=== PATIENT | female | born 1990 | race Caucasian/White ===

== ENCOUNTER 2017-05-30 08:52 | Day surgery (SDC) | payer OTHER ==
[2017-05-30 09:20] VITALS: TEMP 98.5
[2017-05-30] MEDS ORDERED: LACTATED RINGERS 1,000 ML IV SCH (09:22)
[2017-05-30] MEDS ORDERED: LIDOCAINE 1% 20 ML VIAL (10MG/ML) FOR IV START INTRADERMA ONE (09:27)
[2017-05-30] MEDS ORDERED: PROPOFOL 10 MG/ML 20 ML VIAL IV ONE (09:51)
[2017-05-30] MEDS ORDERED: LIDOCAINE 1% INJ 10MG/ML (20 ML MDV) ONE (09:51)
[2017-05-30] MEDS ORDERED: MIDAZOLAM 2 MG/2 ML VIAL ONE (09:51)
--- NOTE | 2017-05-30 09:55 | P.GSHP ---
History of Present Illness H&P Date: 05/30/17 Chief Complaint: GERD This a 26-year-old female who is a new patient to Dr. Rosales. Patient presents today for EGD. She was originally treated for reflux by Dr. Myers. She's been treated with excellent. She did have some relief with this medication. Past Medical History Past Medical History: GERD/Reflux Additional Past Medical History / Comment(s): frequent heartburn, vomiting History of Any Multi-Drug Resistant Organisms: None Reported Additional Past Surgical History / Comment(s): wisdom teeth Past Anesthesia/Blood Transfusion Reactions: No Reported Reaction Smoking Status: Former smoker - Past Family History Mother Family Medical History: Cancer Medications and Allergies Home Medications Medication Instructions Recorded Confirmed Type No Known Home Medications [No 05/28/17 05/28/17 History Known Home Medications] Allergies Allergy/AdvReac Type Severity Reaction Status Date / Time nickel Allergy Rash/Hives Uncoded 05/28/17 12:58 Surgical - Exam Vital Signs Temp Pulse Resp BP Pulse Ox 98.5 F 104 H 16 128/84 98 05/30/17 09:18 05/30/17 09:18 05/30/17 09:18 05/30/17 09:18 05/30/17 09:18 - General well developed, no distress - Eyes PERRL - ENT normal pinna - Neck no masses - Respiratory normal expansion - Cardiovascular Rhythm: regular - Abdomen Abdomen: soft, non tender Assessment and Plan Plan: GERD. We'll perform EGD.
[2017-05-30 10:12] VITALS: RESP 18
[2017-05-30 10:41] VITALS: BP 113/76; PULSE 89
--- NOTE | 2017-05-30 13:18 | P.OP ---
Date of Procedure: 05/30/17 Preoperative Diagnosis: gerd Postoperative Diagnosis: GERD Hiatal hernia Antral gastritis Esophagitis Procedure(s) Performed: EGD Implants: Anesthesia: MAC Surgeon: Mike Ewing Pathology: other (Antrum, esophagus) Indications for Procedure: Operative Findings: Description of Procedure: The patient's placed on the endoscopy table lateral position. She received IV sedation. The gastroscope placed oropharynx passed in the esophagus and stomach. Scope was then placed through the pylorus. The first second portion duodenum appeared normal. Scope was then brought back and the antrum and this appeared mildly inflamed. Biopsies performed. The scope was unretroflexed and remainder stomach appeared normal. There was a moderate size hiatal hernia. The GE junction was at 38 cm. The distal esophagus appeared mildly inflamed a biopsies performed. The proximal esophagus appeared normal. Scope was withdrawn from patient.
== END 2017-05-30 10:45 | disposition home or self-care (01) ==
LOC: ORWHC2ENDO 08:52
PROVIDERS: ATTEND Surgery
DX: K21.0 Gastro-esophageal reflux disease with esophagitis (principal); K29.50 Unspecified chronic gastritis without bleeding; K44.9 Diaphragmatic hernia without obstruction or gangrene; Z87.891 Personal history of nicotine dependence
CPT/HCPCS: 81025; 88305; 88342; 43239; J2250; J2001; J2704

== ENCOUNTER 2017-06-22 22:54 | Emergency (ER) | payer OTHER ==
[2017-06-22 23:02] VITALS: TEMP 98.6
[2017-06-22] MEDS ORDERED: IPRATROPIUM-ALBUTEROL 3 ML NEB INHALATION STA (23:09)
[2017-06-22] MEDS ORDERED: methylPREDNISolone SOD SUCCI 125 MG/2 ML VIAL IM ONE (23:10)
--- NOTE | 2017-06-22 23:22 | ED ---
SOB HPI - General Chief Complaint: Shortness of Breath Stated Complaint: Difficulty Breathing Time Seen by Provider: 06/22/17 23:04 Source: patient, RN notes reviewed Mode of arrival: ambulatory Limitations: no limitations - History of Present Illness Initial Comments: This a 26-year-old female presents emergency Department chief complaint shortness breath. Patient states she's had increasing shortness breath over the last few days. Patient states she was discharged from the hospital on after she spent the night in the hospital secondary tachycardia. Patient states she started on Tenormin 25 mg by medical specialist. They cannot find any abnormality causing her tachycardia. She states that she had an echocardiogram , EKG and repeat troponin. Patient states her thyroid function was normal. Patient states that she also has been told that she has a hiatal hernia by Dr. Irizarryania she's had bladder surgery this week. Patient denies any nausea vomiting. She does complain of some acid reflux but this is chronic. Patient states that last few hours she's had increasing shortness breath and tightness in her chest. She states that she hears herself wheezing at home. Patient is a nonsmoker no history of asthma. - Related Data Home Medications Medication Instructions Recorded Confirmed Omeprazole 40 mg PO DAILY 06/17/17 06/22/17 Previous Rx's Medication Instructions Recorded Metoprolol Tartrate [Lopressor] 12.5 mg PO BID #60 tab 06/19/17 Albuterol Sulfate [Proair Hfa] 1 - 2 puff INHALATION Q4HR PRN #1 06/23/17 inhaler methylPREDNISolone [Medrol Dose 4 mg PO DIRECTED #1 pack 06/23/17 Pack] Allergies Allergy/AdvReac Type Severity Reaction Status Date / Time nickel Allergy Rash/Hives Uncoded 06/18/17 07:44 Review of Systems ROS Statement: Those systems with pertinent positive or pertinent negative responses have been documented in the HPI. ROS Other: All systems not noted in ROS Statement are negative. Past Medical History Past Medical History: GERD/Reflux, Skin Disorder Additional Past Medical History / Comment(s): GERD,HIATAL HERNIA, GASTRITIS, ESOPHAGITIS, psoriasis,RECENT lung infection was on ABB/steroids, JIHAN FEVER. NEVER HAD CHICKEN POX. History of Any Multi-Drug Resistant Organisms: None Reported Additional Past Surgical History / Comment(s): [place] teeth, EGD. Past Anesthesia/Blood Transfusion Reactions: No Reported Reaction Past Psychological History: ADD/ADHD, Anxiety, Depression Smoking Status: Former smoker - Past Family History Mother Family Medical History: Cancer Additional Family Medical History / Comment(s): Breast Cancer Father Additional Family Medical History / Comment(s): CATARACTS, HERNIA General Exam Limitations: no limitations General appearance: alert, in no apparent distress Head exam: Present: atraumatic, normocephalic, normal inspection Eye exam: Present: normal appearance, PERRL, EOMI. Absent: scleral icterus, conjunctival injection, periorbital swelling ENT exam: Present: normal exam, normal oropharynx, mucous membranes moist, TM's normal bilaterally Neck exam: Present: normal inspection. Absent: tenderness, meningismus, lymphadenopathy Respiratory exam: Present: wheezes (Bilateral throughout), accessory muscle use , decreased breath sounds. Absent: normal lung sounds bilaterally, respiratory distress, rales, rhonchi, stridor Cardiovascular Exam: Present: normal rhythm, tachycardia, normal heart sounds. Absent: systolic murmur, diastolic murmur, rubs, gallop, clicks GI/Abdominal exam: Present: soft, normal bowel sounds. Absent: distended, tenderness, guarding, rebound, rigid Neurological exam: Present: alert, oriented X3, CN II-XII intact Skin exam: Present: warm, dry, intact, normal color. Absent: rash Course Vital Signs 06/22/17 06/22/17 06/22/17 22:58 23:16 23:35 Temperature 98.6 F Pulse Rate 125 H 120 H Respiratory 26 H 26 H Rate Blood Pressure 126/74 O2 Sat by Pulse 92 L Oximetry 06/22/17 06/23/17 06/23/17 23:38 00:38 00:49 Temperature Pulse Rate 124 H 110 H 108 H Respiratory 20 Rate Blood Pressure 132/62 O2 Sat by Pulse 93 L Oximetry 06/23/17 01:06 Temperature Pulse Rate 112 H Respiratory Rate Blood Pressure O2 Sat by Pulse Oximetry Medical Decision Making - Medical Decision Making 26-year-old female presented for shortness breath wheezing. Patient states she feels 100% better at this time. She still does have some wheezing on exam states that she symptomatically feels better. Patient is requesting to be discharged. I did offer admission to the hospital at this time for steroids and repeat treatments. She states that she feels okay to go home and will follow-up. She is advised to stop the beta torito as this may be causing her symptoms. - Lab Data Result diagrams: 06/22/17 23:20 06/22/17 23:20 Lab Results 06/22/17 06/22/17 06/22/17 Range/Units 23:20 23:20 23:20 WBC 16.6 H (3.8-10.6) k/uL RBC 4.65 (3.80-5.40) m/uL Hgb 14.0 (11.4-16.0) gm/dL Hct 39.8 (34.0-46.0) % MCV 85.4 (80.0-100.0) fL MCH 30.0 (25.0-35.0) pg MCHC 35.2 (31.0-37.0) g/dL RDW 13.9 (11.5-15.5) % Plt Count 359 (150-450) k/uL Neutrophils % 68 % Lymphocytes % 19 % Monocytes % 4 % Eosinophils % 7 % Basophils % 1 % Neutrophils # 11.3 H (1.3-7.7) k/uL Lymphocytes # 3.2 (1.0-4.8) k/uL Monocytes # 0.6 (0-1.0) k/uL Eosinophils # 1.2 H (0-0.7) k/uL Basophils # 0.1 (0-0.2) k/uL Sodium 137 (137-145) mmol/L Potassium 4.1 (3.5-5.1) mmol/L Chloride 106 (98-107) mmol/L Carbon Dioxide 21 L (22-30) mmol/L Anion Gap 10 mmol/L BUN 15 (7-17) mg/dL Creatinine 0.90 (0.52-1.04) mg/dL Est GFR (MDRD) Af Amer >60 (>60 ml/min/1.73 sqM) Est GFR (MDRD) Non-Af >60 (>60 ml/min/1.73 sqM) Glucose 98 (74-99) mg/dL Plasma Lactic Acid Juan C 1.3 (0.7-2.0) mmol/L Calcium 9.6 (8.4-10.2) mg/dL Disposition Clinical Impression: Acute bronchospasm Disposition: HOME SELF-CARE Condition: Stable Instructions: Bronchospasm (ED) Additional Instructions: Please return to the Emergency Department if symptoms worsen or any other concerns. Stop your atenolol and call your physician who prescribed this for further directions. Prescriptions: Albuterol Sulfate [Proair Hfa] 1 - 2 puff INHALATION Q4HR PRN #1 inhaler PRN Reason: difficulty in breathing methylPREDNISolone [Medrol Dose Pack] 4 mg PO DIRECTED #1 pack Referrals: Lopez Rosales DO [Primary Care Provider] - 1-2 days Time of Disposition: 01:21
[2017-06-22] MEDS ORDERED: methylPREDNISolone SOD SUCCI 125 MG/2 ML VIAL IV STA (23:32)
[2017-06-22 23:51] LABS: Basophils # (A) 0.1 k/uL (0-0.2); Basophils % (A) 1 %; CH 30.9; CHCM 36.3; Eosinophils # (A) 1.2 k/uL (0-0.7); Eosinophils % (A) 7 %; HCT 39.8 % (34.0-46.0); Luc # (Auto) 0.19; Luc % (Auto) 1; Lymphocytes # (A) 3.2 k/uL (1.0-4.8); Lymphocytes % (A) 19 %; MCHC 35.2 g/dL (31.0-37.0); MCV 85.4 fL (80.0-100.0); Monocytes # (A) 0.6 k/uL (0-1.0); Monocytes % (A) 4 %; Neutrophils # (A) 11.3 k/uL (1.3-7.7); Neutrophils % (A) 68 %; RBC 4.65 m/uL (3.80-5.40); RDW 13.9 % (11.5-15.5); WBC 16.6 k/uL (3.8-10.6); WBC (Perox) 16.69
[2017-06-22 23:59] LABS: Anion Gap 10 mmol/L; Blood Urea Nitrogen 15 mg/dL (7-17); Calcium 9.6 mg/dL (8.4-10.2); Carbon Dioxide 21 mmol/L (22-30); Chloride 106 mmol/L (98-107); Glucose 98 mg/dL (74-99); Non-African American GFR(MDRD) >60 (>60 ml/min/1.73 sqM); Potassium 4.1 mmol/L (3.5-5.1); Sodium 137 mmol/L (137-145)
--- NOTE | 2017-06-23 00:33 | XR ---
EXAM: XR Chest, 2 Views CLINICAL HISTORY: Reason: Pain TECHNIQUE: Frontal and lateral views of the chest. COMPARISON: No relevant prior studies available. FINDINGS: Lungs: Unremarkable. No consolidation. Pleural space: Unremarkable. No pneumothorax. Heart: Unremarkable. No cardiomegaly. Mediastinum: Unremarkable. Bones/joints: Unremarkable. IMPRESSION: Normal chest x-rays.
[2017-06-23 00:39] VITALS: BP 132/62; RESP 20
[2017-06-23] MEDS ORDERED: ALBUTEROL NEBULIZED 2.5 MG/3 ML INHALATION STA (00:45)
[2017-06-23 01:07] VITALS: PULSE 112
== END 2017-06-23 01:31 | disposition home or self-care (01) ==
LOC: EC 22:54
DX: J98.01 Acute bronchospasm (principal); K21.9 Gastro-esophageal reflux disease without esophagitis; Z53.8 Procedure and treatment not carried out for other reasons; Z87.891 Personal history of nicotine dependence; Z91.048 Other nonmedicinal substance allergy status; Z79.899 Other long term (current) drug therapy
CPT/HCPCS: 99285; 96374; 36415; 94640 ×2; 80048; 83605; 85025; 87040; 71020; J2930

== ENCOUNTER 2018-01-07 12:16 | Emergency (ER) | payer OTHER ==
[2018-01-07] MEDS ORDERED: IPRATROPIUM-ALBUTEROL 3 ML NEB INHALATION STA (13:54)
[2018-01-07 14:07] LABS: Basophils % (A) 0 %; Eosinophils % (A) 0 %; HCT 40.9 % (34.0-46.0); HGB 13.8 gm/dL (11.4-16.0); Lymphocytes # (A) 0.6 k/uL (1.0-4.8); Lymphocytes % (A) 6 %; MCH 28.6 pg (25.0-35.0); MCHC 33.7 g/dL (31.0-37.0); Mean Platelet Volume 7.2; Monocytes # (A) 0.3 k/uL (0-1.0); Monocytes % (A) 3 %; Neutrophils # (A) 8.5 k/uL (1.3-7.7); Neutrophils % (A) 90 %; Platelet Count 311 k/uL (150-450); RBC 4.81 m/uL (3.80-5.40); RDW 13.2 % (11.5-15.5); WBC 9.4 k/uL (3.8-10.6)
--- NOTE | 2018-01-07 14:07 | XR ---
EXAMINATION TYPE: XR chest 2V DATE OF EXAM: 01/07/2018 COMPARISON: 06/22/2017 HISTORY: Chest pain TECHNIQUE: Frontal and lateral views of the chest are obtained. FINDINGS: There is no focal air space opacity. No evidence for pneumothorax. No pleural effusion. The cardiac silhouette size is within normal limits. The osseous structures are grossly intact. IMPRESSION: 1. No acute cardiopulmonary process.
[2018-01-07 14:09] LABS: ALT 23 U/L (9-52); AST 15 U/L (14-36); Albumin 4.7 g/dL (3.5-5.0); Alkaline Phosphatase 102 U/L (38-126); Anion Gap 16 mmol/L; Blood Urea Nitrogen 13 mg/dL (7-17); Calcium 10.1 mg/dL (8.4-10.2); Carbon Dioxide 21 mmol/L (22-30); Chloride 105 mmol/L (98-107); Glucose 105 mg/dL (74-99); Potassium 4.4 mmol/L (3.5-5.1); Sodium 142 mmol/L (137-145); Total Bilirubin 0.6 mg/dL (0.2-1.3); Total Protein 7.8 g/dL (6.3-8.2)
[2018-01-07 14:13] LABS: INR 1.3 (<1.2); Prothrombin Time 12.2 sec (9.0-12.0)
[2018-01-07 14:14] LABS: Partial Thromboplastin Time 22.3 sec (22.0-30.0)
--- NOTE | 2018-01-07 15:32 | ED ---
SOB HPI - General Chief Complaint: Shortness of Breath Stated Complaint: Shortness of Breath Time Seen by Provider: 01/07/18 13:40 Source: patient Mode of arrival: ambulatory Limitations: no limitations - History of Present Illness Initial Comments: Patient complains of shortness of breath. She has wheezing. Patient saw her doctor yesterday. They started her on Solu-Medrol, azithromycin and albuterol. Patient states that about 6 months ago she had an aspiration pneumonia. Ever since then she has been having episodes of trouble breathing. She states that she has shortness of breath when she is walking around. She also has trouble on down at nighttime. She has no belly or back pain. She has no chest pain or pressure or tightness. - Related Data Home Medications Medication Instructions Recorded Confirmed Albuterol Sulfate [Proair Hfa] 2 puff INHALATION RT-Q4H PRN 09/18/17 01/07/18 Diltiazem HCl [Diltiazem ER] 180 mg PO DAILY@1000 09/18/17 01/07/18 Azithromycin [Zithromax Z-pack] See Taper PO DIRECTED 01/07/18 01/07/18 methylPREDNISolone [Medrol Dose See Taper PO DIRECTED 01/07/18 01/07/18 Pack] Allergies Allergy/AdvReac Type Severity Reaction Status Date / Time nickel Allergy Rash/Hives Verified 01/07/18 13:43 Review of Systems ROS Statement: Those systems with pertinent positive or pertinent negative responses have been documented in the HPI. ROS Other: All systems not noted in ROS Statement are negative. Past Medical History Past Medical History: GERD/Reflux, Skin Disorder Additional Past Medical History / Comment(s): hx migraines, occ palpitations, "tachycardia", hiatal hernia, poriasis,hypoglycemia, anemia, History of Any Multi-Drug Resistant Organisms: None Reported Additional Past Surgical History / Comment(s): oral surgery, EGD Past Anesthesia/Blood Transfusion Reactions: No Reported Reaction Past Psychological History: ADD/ADHD, Anxiety Smoking Status: Former smoker Past Alcohol Use History: Occasional Past Drug Use History: None Reported - Past Family History Mother Family Medical History: Cancer Additional Family Medical History / Comment(s): Breast Cancer, skin cancer Father Additional Family Medical History / Comment(s): CATARACTS, HERNIA General Exam Limitations: no limitations General appearance: alert, in no apparent distress Head exam: Present: atraumatic, normocephalic, normal inspection Eye exam: Present: normal appearance, PERRL, EOMI. Absent: scleral icterus, conjunctival injection, periorbital swelling ENT exam: Present: normal exam, mucous membranes moist Neck exam: Present: normal inspection. Absent: tenderness, meningismus, lymphadenopathy Respiratory exam: Present: normal lung sounds bilaterally, wheezes. Absent: respiratory distress, rales, rhonchi, stridor Cardiovascular Exam: Present: regular rate, normal rhythm, normal heart sounds. Absent: systolic murmur, diastolic murmur, rubs, gallop, clicks GI/Abdominal exam: Present: soft, normal bowel sounds. Absent: distended, tenderness, guarding, rebound, rigid Extremities exam: Present: normal inspection, full ROM, normal capillary refill. Absent: tenderness, pedal edema, joint swelling, calf tenderness Back exam: Present: normal inspection Neurological exam: Present: alert, oriented X3, CN II-XII intact Psychiatric exam: Present: normal affect, normal mood Skin exam: Present: warm, dry, intact, normal color. Absent: rash Course Vital Signs 01/07/18 01/07/18 01/07/18 13:11 14:04 14:12 Temperature 99.1 F Pulse Rate 111 H 72 Respiratory 20 18 Rate Blood Pressure 155/79 O2 Sat by Pulse 91 L Oximetry 01/07/18 14:22 Temperature Pulse Rate 74 Respiratory Rate Blood Pressure O2 Sat by Pulse Oximetry Medical Decision Making - Medical Decision Making Patient presents with shortness of breath. She has wheezing. I gave her a DuoNeb breathing. She is feeling better. Laboratory workup is entirely normal. She has negative troponin, negative BNP, negative d-dimer. Two-view chest x-rays negative per radiology. We have illuminated any type of acute emergency condition that requires admission or further workup or admission to the hospital. At this time she is appropriate for outpatient follow-up. She is feeling much better and is stable for discharge. - Lab Data Result diagrams: 01/07/18 13:45 01/07/18 13:45 Lab Results 01/07/18 01/07/18 01/07/18 Range/Units 13:45 13:45 13:45 WBC 9.4 (3.8-10.6) k/uL RBC 4.81 (3.80-5.40) m/uL Hgb 13.8 (11.4-16.0) gm/dL Hct 40.9 (34.0-46.0) % MCV 85.0 (80.0-100.0) fL MCH 28.6 (25.0-35.0) pg MCHC 33.7 (31.0-37.0) g/dL RDW 13.2 (11.5-15.5) % Plt Count 311 (150-450) k/uL Neutrophils % 90 % Lymphocytes % 6 % Monocytes % 3 % Eosinophils % 0 % Basophils % 0 % Neutrophils # 8.5 H (1.3-7.7) k/uL Lymphocytes # 0.6 L (1.0-4.8) k/uL Monocytes # 0.3 (0-1.0) k/uL Eosinophils # 0.0 (0-0.7) k/uL Basophils # 0.0 (0-0.2) k/uL PT 12.2 H (9.0-12.0) sec INR 1.3 H (<1.2) APTT 22.3 (22.0-30.0) sec D-Dimer (<0.60) mg/L FEU Sodium 142 (137-145) mmol/L Potassium 4.4 (3.5-5.1) mmol/L Chloride 105 (98-107) mmol/L Carbon Dioxide 21 L (22-30) mmol/L Anion Gap 16 mmol/L BUN 13 (7-17) mg/dL Creatinine 0.62 (0.52-1.04) mg/dL Est GFR (CKD-EPI)AfAm >90 (>60 ml/min/1.73 sqM) Est GFR (CKD-EPI)NonAf >90 (>60 ml/min/1.73 sqM) Glucose 105 H (74-99) mg/dL Calcium 10.1 (8.4-10.2) mg/dL Total Bilirubin 0.6 (0.2-1.3) mg/dL AST 15 (14-36) U/L ALT 23 (9-52) U/L Alkaline Phosphatase 102 (38-126) U/L Troponin I (0.000-0.034) ng/mL NT-Pro-B Natriuret Pep pg/mL Total Protein 7.8 (6.3-8.2) g/dL Albumin 4.7 (3.5-5.0) g/dL 01/07/18 01/07/18 01/07/18 Range/Units 13:45 13:45 13:45 WBC (3.8-10.6) k/uL RBC (3.80-5.40) m/uL Hgb (11.4-16.0) gm/dL Hct (34.0-46.0) % MCV (80.0-100.0) fL MCH (25.0-35.0) pg MCHC (31.0-37.0) g/dL RDW (11.5-15.5) % Plt Count (150-450) k/uL Neutrophils % % Lymphocytes % % Monocytes % % Eosinophils % % Basophils % % Neutrophils # (1.3-7.7) k/uL Lymphocytes # (1.0-4.8) k/uL Monocytes # (0-1.0) k/uL Eosinophils # (0-0.7) k/uL Basophils # (0-0.2) k/uL PT (9.0-12.0) sec INR (<1.2) APTT (22.0-30.0) sec D-Dimer 0.31 (<0.60) mg/L FEU Sodium (137-145) mmol/L Potassium (3.5-5.1) mmol/L Chloride (98-107) mmol/L Carbon Dioxide (22-30) mmol/L Anion Gap mmol/L BUN (7-17) mg/dL Creatinine (0.52-1.04) mg/dL Est GFR (CKD-EPI)AfAm (>60 ml/min/1.73 sqM) Est GFR (CKD-EPI)NonAf (>60 ml/min/1.73 sqM) Glucose (74-99) mg/dL Calcium (8.4-10.2) mg/dL Total Bilirubin (0.2-1.3) mg/dL AST (14-36) U/L ALT (9-52) U/L Alkaline Phosphatase (38-126) U/L Troponin I <0.012 (0.000-0.034) ng/mL NT-Pro-B Natriuret Pep 33 pg/mL Total Protein (6.3-8.2) g/dL Albumin (3.5-5.0) g/dL 01/07/18 15:30 Twelve-lead EKG shows ventricular rate 117 bpm, normal ID interval and QRS complexes, no ST elevation or depression, interpreted by me as sinus tachycardia. Disposition Clinical Impression: Asthma with exacerbation Disposition: HOME SELF-CARE Condition: Good Instructions: Acute Bronchitis (ED) Referrals: Lopez Rosales DO [Primary Care Provider] - 1-2 days Augusto Honeycutt MD [STAFF PHYSICIAN] - 1-2 days
[2018-01-07 15:45] VITALS: BP 122/73; PULSE 110; RESP 16; TEMP 98.4
== END 2018-01-07 15:46 | disposition home or self-care (01) ==
LOC: EC 12:16
DX: J45.901 Unspecified asthma with (acute) exacerbation (principal); Z87.01 Personal history of pneumonia (recurrent); Z87.891 Personal history of nicotine dependence; Z91.09 Other allergy status, other than to drugs and biological substances; Z79.52 Long term (current) use of systemic steroids; Z79.899 Other long term (current) drug therapy
CPT/HCPCS: 36415; 71046; 80053; 83880; 84484; 85025; 85379; 85610; 85730; 93005; 94640; 99285

== ENCOUNTER → 2018-01-19 | Outpatient (CLI) | payer OTHER ==
[2018-01-19 12:20] LABS: Basophils % (A) 0 %; Eosinophils # (A) 0.1 k/uL (0-0.7); Eosinophils % (A) 1 %; HGB 13.7 gm/dL (11.4-16.0); Lymphocytes # (A) 2.1 k/uL (1.0-4.8); Lymphocytes % (A) 10 %; MCH 29.4 pg (25.0-35.0); MCHC 33.5 g/dL (31.0-37.0); MCV 87.9 fL (80.0-100.0); Mean Platelet Volume 6.5; Monocytes # (A) 0.6 k/uL (0-1.0); Monocytes % (A) 3 %; Neutrophils # (A) 17.2 k/uL (1.3-7.7); Neutrophils % (A) 85 %; Platelet Count 411 k/uL (150-450); RBC 4.66 m/uL (3.80-5.40); RDW 13.2 % (11.5-15.5); WBC 20.1 k/uL (3.8-10.6)
[2018-01-19 12:28] LABS: ALT 18 U/L (9-52); AST 13 U/L (14-36); Albumin 4.3 g/dL (3.5-5.0); Alkaline Phosphatase 95 U/L (38-126); Anion Gap 12 mmol/L; Blood Urea Nitrogen 13 mg/dL (7-17); Calcium 9.3 mg/dL (8.4-10.2); Carbon Dioxide 26 mmol/L (22-30); Chloride 102 mmol/L (98-107); Creatine Kinase 37 U/L (30-135); Glucose 88 mg/dL (74-99); Potassium 4.2 mmol/L (3.5-5.1); Sodium 140 mmol/L (137-145); Total Bilirubin 0.2 mg/dL (0.2-1.3); Total Protein 7.1 g/dL (6.3-8.2)
[2018-01-19 14:20] LABS: Erythrocyte Sedimentation Rate 6 mm/hr (0-20)
== END | disposition home or self-care (01) ==
LOC: LABWHC1 12:02
PROVIDERS: ATTEND Internal Medicine Critical Care Medicine
DX: M25.50 Pain in unspecified joint (principal)
CPT/HCPCS: 36415; 80053; 82550; 85025; 85652

== ENCOUNTER 2020-08-13 07:20 | Emergency (ER) | payer OTHER ==
[2020-08-13 07:26] VITALS: TEMP 98.5
[2020-08-13] MEDS ORDERED: DIAZEPAM 5 MG/ML 2 ML INJ IVP STA (07:37)
--- NOTE | 2020-08-13 07:42 | ED ---
General Adult HPI - General Chief complaint: Back Pain/Injury Stated complaint: Back pain Time Seen by Provider: 08/13/20 07:20 Source: patient, family, RN notes reviewed, old records reviewed Mode of arrival: ambulatory Limitations: no limitations - History of Present Illness Initial comments: This is a 29-year-old female who presents emergency Department complaining of left upper back pain. 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 Patient states the pain is definitely worse with movement of her neck especially looking down. Patient states if she lays still the pain isn't as bad. Patient states she has no difficulty breathing no chest pain. Patient denies any blunt trauma or injury to that area. Patient states she took Motrin 600 mg prior to arrival. Patient denies any numbness or weakness. - Related Data Home Medications Medication Instructions Recorded Confirmed Albuterol Sulfate [Proair Hfa] 2 puff INHALATION RT-Q4H PRN 09/18/17 01/07/18 Diltiazem HCl [Diltiazem ER] 180 mg PO DAILY@1000 09/18/17 01/07/18 Azithromycin [Zithromax Z-pack] See Taper PO DIRECTED 01/07/18 01/07/18 methylPREDNISolone [Medrol Dose See Taper PO DIRECTED 01/07/18 01/07/18 Pack] Previous Rx's Medication Instructions Recorded Cyclobenzaprine [Flexeril] 10 mg PO TID #20 tab 08/13/20 Ibuprofen [Motrin] 600 mg PO Q6HR PRN #20 tab 08/13/20 Allergies Allergy/AdvReac Type Severity Reaction Status Date / Time montelukast [From Singulair] Allergy Unknown Verified 08/13/20 07:26 nickel Allergy Rash/Hives Verified 01/07/18 13:43 Review of Systems ROS Statement: Those systems with pertinent positive or pertinent negative responses have been documented in the HPI. ROS Other: All systems not noted in ROS Statement are negative. Past Medical History Past Medical History: GERD/Reflux, Skin Disorder Additional Past Medical History / Comment(s): hx migraines, occ palpitations, "tachycardia", hiatal hernia, poriasis,hypoglycemia, anemia, History of Any Multi-Drug Resistant Organisms: None Reported Additional Past Surgical History / Comment(s): oral surgery, EGD Past Anesthesia/Blood Transfusion Reactions: No Reported Reaction Past Psychological History: ADD/ADHD, Anxiety Smoking Status: Former smoker Past Alcohol Use History: Occasional Past Drug Use History: Marijuana - Past Family History Mother Family Medical History: Cancer Additional Family Medical History / Comment(s): Breast Cancer, skin cancer Father Additional Family Medical History / Comment(s): CATARACTS, HERNIA General Exam - General Exam Comments Initial Comments: GENERAL: Patient is well-developed and well-nourished. Patient is nontoxic and well- hydrated and is in moderate distress. ENT: Neck is soft and supple. No significant lymphadenopathy is noted. Oropharynx is clear. Moist mucous membranes. Patient has difficulty turning her head to the right because this causes pain in the left upper back. Patient also has difficulty flexing her neck. EYES: The sclera were anicteric and conjunctiva were pink and moist. Extraocular movements were intact and pupils were equal round and reactive to light. Eyelids were unremarkable. PULMONARY: Unlabored respirations. Good breath sounds bilaterally. No audible rales rhonchi or wheezing was noted. CARDIOVASCULAR: There is a regular rate and rhythm without any murmurs gallops or rubs. ABDOMEN: Soft and nontender with normal bowel sounds. SKIN: Skin is clear with no lesions or rashes and otherwise unremarkable. NEUROLOGIC: Patient is alert and oriented x3. Cranial nerves II through XII are grossly intact. Motor and sensory are also intact. Normal speech, volume and content. Symmetrical smile. MUSCULOSKELETAL: Normal extremities with adequate strength and full range of motion. LYMPHATICS: No significant lymphadenopathy is noted PSYCHIATRIC: Normal psychiatric evaluation. Limitations: no limitations Course Vital Signs 08/13/20 08/13/20 07:20 08:00 Temperature 98.5 F Pulse Rate 114 H 88 Respiratory 18 16 Rate Blood Pressure 129/79 O2 Sat by Pulse 100 99 Oximetry Medical Decision Making - Medical Decision Making Patient received Valium and a half of Dilaudid in the emergency department was feeling considerably better. Patient still has some stiffness but had more mobility than when she arrived. Disposition Clinical Impression: Thoracic back pain Disposition: HOME SELF-CARE Condition: Good Instructions (If sedation given, give patient instructions): Thoracic Pain (ED) Prescriptions: Cyclobenzaprine [Flexeril] 10 mg PO TID #20 tab Ibuprofen [Motrin] 600 mg PO Q6HR PRN #20 tab PRN Reason: For pain Is patient prescribed a controlled substance at d/c from ED?: No Referrals: Lopez Rosales DO [Primary Care Provider] - 1-2 days Time of Disposition: 08:49
[2020-08-13] MEDS ORDERED: HYDROmorphone 0.5 MG/0.5 ML SYRINGE IVP STA (08:16)
[2020-08-13 08:19] VITALS: PULSE 88; RESP 16
[2020-08-13 08:55] VITALS: BP 110/88
== END 2020-08-13 08:54 | disposition home or self-care (01) ==
LOC: EC 07:20
DX: M54.6 Pain in thoracic spine (principal); Z79.899 Other long term (current) drug therapy; Z88.8 Allergy status to other drugs, medicaments and biological substances; Z91.048 Other nonmedicinal substance allergy status; Z87.891 Personal history of nicotine dependence
CPT/HCPCS: 99283; 96374; 96375; J3360; J1170

== ENCOUNTER → 2021-09-27 | Outpatient (CLI) | payer OTHER ==
--- NOTE | 2021-09-27 12:55 | XR ---
EXAMINATION TYPE: XR chest 2V DATE OF EXAM: 09/27/2021 COMPARISON: 01/07/2018 TECHNIQUE: PA and lateral views submitted. HISTORY: Enlarged lymph node FINDINGS: The lungs are clear and there is no pneumothorax, pleural effusion, or focal pneumonia. Heart size normal. No overt failure. IMPRESSION: 1. No acute process.
== END | disposition home or self-care (01) ==
LOC: RADXRMAIN 12:31
PROVIDERS: ATTEND Nurse Practitioner Family
DX: R59.0 Localized enlarged lymph nodes (principal)
CPT/HCPCS: 71046

== ENCOUNTER 2023-09-23 08:43 | Emergency (ER) | payer OTHER ==
[2023-09-23] MEDS ORDERED: SODIUM CHLORIDE 0.9% 1,000 ML IV ONE (09:18)
[2023-09-23] MEDS ORDERED: hydrOXYzine HCL 25 MG TAB PO STA (09:19)
[2023-09-23 09:46] LABS: Basophils # (A) 0.1 k/uL (0-0.2); Basophils % (A) 0 %; Eosinophils # (A) 0.1 k/uL (0-0.7); Eosinophils % (A) 1 %; HCT 42.4 % (34.0-46.0); HGB 14.5 gm/dL (11.4-16.0); Lymphocytes # (A) 2.7 k/uL (1.0-4.8); Lymphocytes % (A) 20 %; MCH 31.4 pg (25.0-35.0); MCHC 34.3 g/dL (31.0-37.0); MCV 91.5 fL (80.0-100.0); Mean Platelet Volume 7.3; Monocytes # (A) 0.5 k/uL (0-1.0); Monocytes % (A) 4 %; Neutrophils # (A) 9.7 k/uL (1.3-7.7); Neutrophils % (A) 73 %; Platelet Count 352 k/uL (150-450); RBC 4.64 m/uL (3.80-5.40); RDW 12.5 % (11.5-15.5); WBC 13.2 k/uL (3.8-10.6)
[2023-09-23 10:02] LABS: ALT 20 U/L (4-34); AST 20 U/L (14-36); African American GFR (CKD) >90 (>60 ml/min/1.73 sqM); Albumin 5.1 g/dL (3.5-5.0); Alkaline Phosphatase 76 U/L (38-126); Anion Gap 14 mmol/L; Blood Urea Nitrogen 11 mg/dL (7-17); Calcium 10.1 mg/dL (8.4-10.2); Carbon Dioxide 25 mmol/L (22-30); Chloride 102 mmol/L (98-107); Glucose 87 mg/dL (74-99); Non-African American GFR(CKD) >90 (>60 ml/min/1.73 sqM); Potassium 3.6 mmol/L (3.5-5.1); Sodium 141 mmol/L (137-145); Total Bilirubin 0.8 mg/dL (0.2-1.3); Total Protein 8.5 g/dL (6.3-8.2)
--- NOTE | 2023-09-23 10:44 | ED ---
General Adult HPI - General Chief complaint: Skin/Abscess/Foreign Body Stated complaint: rash Time Seen by Provider: 09/23/23 09:05 Source: patient, RN notes reviewed Mode of arrival: ambulatory Limitations: no limitations - History of Present Illness Initial comments: 32-year-old female presents emergency Department with chief complaint of itchy feeling. Patient states that she started using some cream for her psoriasis. States it causes a burning issue. Patient states that she felt dermatology placed on steroids and topical steroid she states that the itchiness all over her body is worse symptoms. She is concerned there something else going on this time she did try some Benadryl. No difficult swallowing - Related Data Home Medications Medication Instructions Recorded Confirmed Albuterol Sulfate [Proair Hfa] 2 puff INHALATION RT-Q4H PRN 09/18/17 01/07/18 dilTIAZem HCL [Diltiazem ER] 180 mg PO DAILY@1000 09/18/17 01/07/18 Azithromycin [Zithromax Z-pack] See Taper PO DIRECTED 01/07/18 01/07/18 methylPREDNISolone [Medrol Dose See Taper PO DIRECTED 01/07/18 01/07/18 Pack] Previous Rx's Medication Instructions Recorded Cyclobenzaprine [Flexeril] 10 mg PO TID #20 tab 08/13/20 Ibuprofen [Motrin] 600 mg PO Q6HR PRN #20 tab 08/13/20 Clobetasol Propionate [Temovate 1 applic TOPICAL BID #60 gm 09/23/23 0.05% Cream] Famotidine [Pepcid] 20 mg PO BID #28 tablet 09/23/23 hydrOXYzine HCL [Atarax] 50 mg PO QID #30 tablet 09/23/23 Allergies Allergy/AdvReac Type Severity Reaction Status Date / Time montelukast [From Singulair] Allergy Unknown Verified 09/23/23 08:50 nickel Allergy Rash/Hives Verified 09/23/23 08:50 Review of Systems ROS Statement: Those systems with pertinent positive or pertinent negative responses have been documented in the HPI. ROS Other: All systems not noted in ROS Statement are negative. Past Medical History Past Medical History: Asthma, GERD/Reflux, Skin Disorder Additional Past Medical History / Comment(s): hx migraines, occ palpitations, "tachycardia", hiatal hernia, poriasis,hypoglycemia, anemia, History of Any Multi-Drug Resistant Organisms: None Reported Additional Past Surgical History / Comment(s): oral surgery, EGD Past Anesthesia/Blood Transfusion Reactions: No Reported Reaction Past Psychological History: ADD/ADHD, Anxiety Smoking Status: Former smoker, Vaper Past Alcohol Use History: Occasional Past Drug Use History: Marijuana - Past Family History Mother Family Medical History: Cancer Additional Family Medical History / Comment(s): Breast Cancer, skin cancer Father Additional Family Medical History / Comment(s): CATARACTS, HERNIA General Exam Limitations: no limitations General appearance: alert, in no apparent distress Head exam: Present: atraumatic, normocephalic, normal inspection Eye exam: Present: normal appearance, PERRL, EOMI. Absent: scleral icterus, conjunctival injection, periorbital swelling ENT exam: Present: normal exam, normal oropharynx, mucous membranes moist Neck exam: Present: normal inspection, full ROM. Absent: tenderness, meningis mus, lymphadenopathy Respiratory exam: Present: normal lung sounds bilaterally. Absent: respiratory distress, wheezes, rales, rhonchi, stridor Cardiovascular Exam: Present: regular rate, normal rhythm, normal heart sounds. Absent: systolic murmur, diastolic murmur, rubs, gallop, clicks GI/Abdominal exam: Present: soft, normal bowel sounds. Absent: distended, tenderness, guarding, rebound, rigid Skin exam: Present: rash Course Vital Signs 09/23/23 09/23/23 08:46 12:17 Temperature 98.6 F 98.4 F Pulse Rate 112 H 89 Respiratory 20 16 Rate Blood Pressure 146/88 112/72 O2 Sat by Pulse 100 99 Oximetry Medical Decision Making - Medical Decision Making Was pt. sent in by a medical professional or institution (, PA, NURSE EDUCATOR, urgent care, hospital, or usp...) When possible be specific @ -No Did you speak to anyone other than the patient for history (EMS, parent, family, police, friend...)? What history was obtained from this source @ -No Did you review nursing and triage notes (agree or disagree)? Why? @ -I reviewed and agree with nursing and triage notes Were old charts reviewed (outside hosp., previous admission, EMS record, old EKG, old radiological studies, urgent care reports/EKG's, usp records)? Report findings @ -No old charts were reviewed Differential Diagnosis (chest pain, altered mental status, abdominal pain women, abdominal pain men, vaginal bleeding, weakness, fever, dyspnea, syncope, headache, dizziness, GI bleed, back pain, seizure, CVA, palpatations, mental health, musculoskeletal)? @ -Pruritus, medication reaction, liver disease EKG interpreted by me (3pts min.). @ -None X-rays interpreted by me (1pt min.). @ -None done CT interpreted by me (1pt min.). @ -None done U/S interpreted by me (1pt. min.). @ -None done What testing was considered but not performed or refused? (CT, X-rays, U/S, labs)? Why? @ -None What meds were considered but not given or refused? Why? @ -None Did you discuss the management of the patient with other professionals (professionals i.e. , PA, NURSE EDUCATOR, lab, RT, psych nurse, social media content manager, allergist/immunologist, teacher, ordnance officer, pillowcase turner)? Give summary @ -No Was smoking cessation discussed for >3mins.? @ -No Was critical care preformed (if so, how long)? @ -No Were there social determinants of health that impacted care today? How? (Homelessness, low income, unemployed, alcoholism, drug addiction, transportation, low edu. Level, literacy, decrease access to med. care, half-way, rehab)? @ -No Was there de-escalation of care discussed even if they declined (Discuss DNR or withdrawal of care, Hospice)? DNR status @ -No What co-morbidities impacted this encounter? (DM, HTN, Smoking, COPD, CAD, Cancer, CVA, ARF, Chemo, Hep., AIDS, mental health diagnosis, sleep apnea, morbid obesity)? @ -None Was patient admitted / discharged? Hospital course, mention meds given and route, prescriptions, significant lab abnormalities, going to OR and other pertinent info. @ -Patient. The labs with no acute findings. Patient was improved after Vistaril patient we discharged with close follow-up. Undiagnosed new problem with uncertain prognosis? @ -No Drug Therapy requiring intensive monitoring for toxicity (Heparin, Nitro, Insulin, Cardizem)? @ -No Were any procedures done? @ -No Diagnosis/symptom? @ -Pruritus Acute, or Chronic, or Acute on Chronic? @ -Acute Uncomplicated (without systemic symptoms) or Complicated (systemic symptoms)? @ -Uncomplicated Side effects of treatment? @ -No Exacerbation, Progression, or Severe Exacerbation? @ -No Poses a threat to life or bodily function? How? (Chest pain, [place], [place], pneumonia, PE, COPD, DKA, ARF, appy, cholecystitis, CVA, Diverticulitis, Homicidal, Suici zara, threat to staff... and all critical care pts) @ -[No - Lab Data Result diagrams: 09/23/23 09:30 09/23/23 09:30 Lab Results 09/23/23 09/23/23 Range/Units 09:30 09:30 WBC 13.2 H (3.8-10.6) k/uL RBC 4.64 (3.80-5.40) m/uL Hgb 14.5 (11.4-16.0) gm/dL Hct 42.4 (34.0-46.0) % MCV 91.5 (80.0-100.0) fL MCH 31.4 (25.0-35.0) pg MCHC 34.3 (31.0-37.0) g/dL RDW 12.5 (11.5-15.5) % Plt Count 352 (150-450) k/uL MPV 7.3 Neutrophils % 73 % Lymphocytes % 20 % Monocytes % 4 % Eosinophils % 1 % Basophils % 0 % Neutrophils # 9.7 H (1.3-7.7) k/uL Lymphocytes # 2.7 (1.0-4.8) k/uL Monocytes # 0.5 (0-1.0) k/uL Eosinophils # 0.1 (0-0.7) k/uL Basophils # 0.1 (0-0.2) k/uL Sodium 141 (137-145) mmol/L Potassium 3.6 (3.5-5.1) mmol/L Chloride 102 (98-107) mmol/L Carbon Dioxide 25 (22-30) mmol/L Anion Gap 14 mmol/L BUN 11 (7-17) mg/dL Creatinine 0.69 (0.52-1.04) mg/dL Est GFR (CKD-EPI)AfAm >90 (>60 ml/min/1.73 sqM) Est GFR (CKD-EPI)NonAf >90 (>60 ml/min/1.73 sqM) Glucose 87 (74-99) mg/dL Calcium 10.1 (8.4-10.2) mg/dL Total Bilirubin 0.8 (0.2-1.3) mg/dL AST 20 (14-36) U/L ALT 20 (4-34) U/L Alkaline Phosphatase 76 (38-126) U/L Total Protein 8.5 H (6.3-8.2) g/dL Albumin 5.1 H (3.5-5.0) g/dL TSH 2.480 (0.465-4.680) mIU/L Disposition Clinical Impression: Pruritus Disposition: HOME SELF-CARE Condition: Stable Instructions (If sedation given, give patient instructions): Itchy Skin (ED) Additional Instructions: Please return to the Emergency Department if symptoms worsen or any other concerns. Prescriptions: hydrOXYzine HCL [Atarax] 50 mg PO QID #30 tablet Famotidine [Pepcid] 20 mg PO BID #28 tablet Clobetasol Propionate [Temovate 0.05% Cream] 1 applic TOPICAL BID #60 gm Is patient prescribed a controlled substance at d/c from ED?: No Referrals: Balaji Canales MD [Primary Care Provider] - 1-2 days Time of Disposition: 12:05
[2023-09-23 12:21] VITALS: BP 112/72; PULSE 89; RESP 16; TEMP 98.4
== END 2023-09-23 12:39 | disposition home or self-care (01) ==
LOC: EC 08:43
DX: L29.9 Pruritus, unspecified (principal); J45.909 Unspecified asthma, uncomplicated; F17.290 Nicotine dependence, other tobacco product, uncomplicated; F12.90 Cannabis use, unspecified, uncomplicated; Z86.59 Personal history of other mental and behavioral disorders; Z79.899 Other long term (current) drug therapy; Z88.8 Allergy status to other drugs, medicaments and biological substances
CPT/HCPCS: 36415; 80053; 84443; 85025; 96360; 99283

== ENCOUNTER → 2025-01-19 | Outpatient (CLI) | payer BC | END | disposition home or self-care (01) | LOC: LABWHC1 08:34 | PROVIDERS: ATTEND Family Medicine | DX: L40.0 Psoriasis vulgaris (principal); Z79.899 Other long term (current) drug therapy | CPT/HCPCS: 36415; 86480 ==